=== PATIENT | female | born 1975 | race Caucasian/White ===

== ENCOUNTER 2019-03-07 10:25 | Emergency (ER) | payer SELFPAY ==
[2019-03-07 10:49] VITALS: BP 148/92; PULSE 98; RESP 18; TEMP 36.8; O2SAT 96; BMI 33.9
--- NOTE | 2019-03-07 11:06 | W.ED.BACK ---
HPI - Back Pain/Injury General: Chief Complaint: Back Pain/Injury Stated Complaint: back pain Time Seen by Provider: 03/07/19 11:00 History of Present Illness: MD elicited complaint: back pain and back injury Pertinent past history: prior back pain Onset (ago): day(s) Timing: constant and progressively worsening Severity: severe Similar Symptoms Previously: Yes Quality: burning, sharp, stabbing and throbbing Location: lumbar spine Radiation: none Exacerbating factors: movement, walking and lifting Relieving factors: none Associated symptoms: Reports no associated symptoms Work related injury: No Review of Systems General: Reports: 10 or more systems reviewed and unremarkable except in HPI and below PFSH ED PFSH: Statuses (acute, chronic, etc) shown below reflect problem list status as previously entered and may not be historically accurate Social History Smoking and tobacco status: current every day smoker Female Reproductive History: Date of last menstrual period: 02/14/19 Physical Exam Narrative: EXAM NARRATIVE: Patient is lying On her right side pulling a soft massager to her lumbar spine. Const: COMMON NORMALS: no apparent distress (Appears to be in mild to moderate pain) and oriented x3 GENERAL APPEARANCE: cooperative and disheveled ORIENTATION/CONSCIOUSNESS: Yes awake, Yes oriented to person, Yes oriented to place and Yes oriented to time HENMT: COMMON NORMALS: normocephalic, head/scalp atraumatic, hearing grossly normal bilaterally, external ears normal, EAC's normal, TM's normal bilaterally, external nose normal, nasal mucous membranes and turbinates normal, moist oral mucous membranes, oropharynx normal, dentition normal and gingiva normal HEAD & SCALP: normocephalic and atraumatic NOSE: external nose normal and nasal mucous membranes and turbinates normal EXTERNAL EAR: Yes external ears normal EXTERNAL AUDITORY CANAL: EAC's normal TYMPANIC MEMBRANE: TM's normal bilaterally Neck/C-Spine: COMMON NORMALS: full ROM, no lymphadenopathy, supple, no meningeal signs, no JVD, thyroid normal and no carotid bruits THYROID: thyroid normal Resp: COMMON NORMALS: normal respiratory effort, no retractions, no use of accessory muscles, clear to auscultation bilaterally and percussion normal AUSCULTATION: clear to auscultation bilaterally PERCUSSION: percussion normal Cardio: COMMON NORMALS: no JVD, regular rate, regular rhythm, S1 normal heart sound, S2 normal heart sound, no gallops, no clicks, no murmurs, no rub and peripheral pulses 2+ throughout RATE: regular rate RHYTHM: regular rhythm HEART SOUNDS: S1 normal and S2 normal PERIPHERAL PULSES: pulses 2+ throughout Back/Pelvis: GENERAL BACK: Yes tenderness THORACIC SPINE/UPPER BACK: Yes normal to inspection LUMBAR SPINE/LOWER BACK: Yes pain with ROM, Yes lumbar spinal tenderness, Yes paraspinal muscle spasm and Yes lumbar scoliosis present Extremity: COMMON NORMALS: normal to inspection, full ROM, normal capillary refill, no joint enlargement, no clubbing, cyanosis or edema, no calf tenderness and no pedal edema Neuro: COMMON NORMALS: oriented x3, CN's II-XII intact bilaterally, moves all extremities, no focal motor deficits, no sensory deficits noted, deep tendon reflexes 2+ bilaterally and gait normal SENSORIUM/ORIENTATION: Yes oriented to person, Yes oriented to place and Yes oriented to time MENINGEAL SIGNS: Yes no meningeal signs Skin: COMMON NORMALS: no rashes or lesions noted, no wounds, skin turgor normal, no jaundice, no petechiae and no mottling GENERAL SKIN EXAM: no rashes or lesions noted and turgor normal Course Vital Signs: Vital signs: Vital Signs Temperature 98.2 F 03/07/19 10:49 Pulse Rate 102 H 03/07/19 13:05 Respiratory Rate 18 03/07/19 10:49 Blood Pressure 150/83 03/07/19 13:05 Pulse Oximetry 96 03/07/19 13:05 MDM - Back Pain/Injury Imaging Data^: lumbar xray: My impression: pt's L-spine xray reveals severe scoliosis. no acute fx or other abnormality Radiologist's impression: CAROLE - Radiology Report Patient: Keya Seymour L Ordering Physician: Lm Chao P ID: [id number] Phone, Pager: Pager: N/A : 1975 Age/Gender: 44Y, F Primary Location: ER Procedure: XR lumbar spine 2-3V* 08333 Study Date: 03/07/2019 11:31:02 AM Order #: [id number] Report Status: Finalized Reason: lumbar spine injury [address] [address] XRay Report Signed Patient: Keya Seymour MR#: [id number] : 1975 Acct:[id number] Age/Sex: 44 / F ADM Date: 03/07/19 Loc: ER Attending Dr: Ordering Physician: Lm Chao DO Date of Service: 03/07/19 Procedure(s): XR lumbar spine 2-3V* [id number] Accession Number(s): [id number] cc: Lm Chao DO PROCEDURE INFORMATION: Exam: XR Lumbosacral Spine, 2 or 3 Views Exam date and time: 03/07/2019 11:36 AM Age: 44 years old Clinical indication: Low back pain; Additional info: Lumbar spine injury TECHNIQUE: Imaging protocol: XR of the lumbosacral spine, 2 or 3 views. COMPARISON: CR Lumbar Spine Flex/Extens [id number] 05/18/2013 9:37 AM FINDINGS: Vertebrae: Chronic thoracolumbar junction region levoscoliosis with segmentation anomalies. Lower lumbar spine has a normal appearance with normal alignment. No acute fracture evident. Soft tissues: Normal. XR/XR lumbar spine 2-3V* [id number] IMPRESSION: No acute findings. Dictated By: Haim Potter MD 03/07/19 1312 Signed By: Haim Potter MD 03/07/19 1313 Discharge Plan Discharge Patient Disposition: Home, Self-Care Clinical Impression: Strain of lumbar region, Lumbar radiculopathy Condition: Stable Prescriptions: New hydrocodone-acetaminophen 5-325 mg tablet 1 tab PO Q8H PRN (Reason: pain) Qty: 7 RF: 0 cyclobenzaprine 10 mg tablet 10 mg PO Q8H PRN (Reason: muscle spasm) Qty: 20 RF: 0 No Action lisinopril 20 mg tablet 1 RF: 0 paroxetine HCl 40 mg tablet 1 mg PO RF: 0 trazodone 100 mg tablet 1 QPM PRN (Reason: Sleep) RF: 0 clonazepam 0.5 mg tablet PRN (Reason: Anxiety) RF: 0 Tylenol 325 mg Capsule 325 mg PO QID PRN (Reason: Pain) RF: 0 naproxen sodium 220 mg Capsule 2 mg PRN (Reason: Pain) RF: 0 Discharge Orders: Discharge Order (Routine); Ordered 03/07/19 Ordered By: Lm Chao Referrals: Beny Townsend MD [Family Provider] - Activity Restrictions/Additional Instructions: Alternate ice packs and moist heat See your primary care physician on Saturday Coding Level of Care Code ED Mobile Application Tester for Chg Fwd Exam Problem Focused
--- NOTE | 2019-03-07 11:12 | XRR_ITS ---
PROCEDURE INFORMATION: Exam: XR Lumbosacral Spine, 2 or 3 Views Exam date and time: 03/07/2019 11:36 AM Age: 44 years old Clinical indication: Low back pain; Additional info: Lumbar spine injury TECHNIQUE: Imaging protocol: XR of the lumbosacral spine, 2 or 3 views. COMPARISON: CR Lumbar Spine Flex/Extens [id number] 05/18/2013 9:37 AM FINDINGS: Vertebrae: Chronic thoracolumbar junction region levoscoliosis with segmentation anomalies. Lower lumbar spine has a normal appearance with normal alignment. No acute fracture evident. Soft tissues: Normal. XR/XR lumbar spine 2-3V* [id number] IMPRESSION: No acute findings.
--- NOTE | 2019-03-07 11:31 | PC.NURSE ---
pt transported to radiology by wheelchair with tech
[2019-03-07] MEDS: ketorolac 30 mg/mL INJ IM (11:48)
[2019-03-07] MEDS: orphenadrine 30 mg/mL Inj 2 mL 60 MG IM (11:48)
[2019-03-07] MEDS: HYDROcodone-acetaminophen 5-325 mg Tablet 1 TAB PO (13:03)
[2019-03-07 13:05] VITALS: BP 150/83; PULSE 102; O2SAT 96
[2019-03-07 13:35] VITALS: BP 137/89; PULSE 94; RESP 20; O2SAT 97
== END 2019-03-07 13:35 | disposition home or self-care (01) ==
PROVIDERS: Emergency Provider Family Medicine; Family Provider Family Medicine
DX: S39.012A Strain of muscle, fascia and tendon of lower back, initial encounter (principal); M54.16 Radiculopathy, lumbar region; F17.210 Nicotine dependence, cigarettes, uncomplicated; X58.XXXA Exposure to other specified factors, initial encounter
CPT/HCPCS: 72100; 96372; 99281; J1885; J2360

== ENCOUNTER 2019-11-16 11:54 | Emergency (ER) | payer SELFPAY ==
--- NOTE | 2019-11-16 11:58 | ED_ITS ---
HPI - Back Pain/Injury General: Chief Complaint: Back Pain/Injury Stated Complaint: BACK PAIN Time Seen by Provider: 11/16/19 11:56 History of Present Illness: HPI Narrative: 44-year-old female presents emergency room via EMS with complaints of back pain. She cannot recall any particular taking event lifting or straining. She refers most of the pain of the low back. She has an ice pack and a vibrating stuffed animal against her low back for relief. She denies any urinary retention or fecal incontinence. No numbness or tingling into the extremities she states she has scoliosis. MD elicited complaint: back pain Pertinent past history: prior back pain Onset (ago): minute(s) Timing: constant Severity: mild Similar Symptoms Previously: Yes Quality: sharp Location: lumbar spine Radiation: none Exacerbating factors: none Relieving factors: none Associated symptoms: Reports no associated symptoms; Deny abdominal pain, chills, dysuria, fatigue, fever(s), nausea, urinary urgency or vomiting Treatments prior to arrival: cold therapy Review of Systems Const: Denies: fever(s), chills, body aches, change in appetite, fatigue or malaise ENMT: Denies: throat pain, ear or mastoid pain, nasal discharge or nasal congestion Card: Denies: chest pain, edema, dyspnea on exertion or orthopnea Resp: Denies: dyspnea, productive cough or non-productive cough GI: Denies: abdominal pain, nausea, vomiting, hematemesis, coffee ground emesis, diarrhea, constipation, bloating, hematochezia or melena : Denies: flank pain, difficulty voiding, dysuria, urinary frequency or urinary urgency Skin/Breast: Denies: rash or pruritus PFS ED PFSH: Medical History Scoliosis Social History Smoking and tobacco status: current every day smoker Female Reproductive History: Date of last menstrual period: 02/14/19 Physical Exam Const: COMMON NORMALS: no acute distress GENERAL APPEARANCE: cooperative and comfortable ORIENTATION/CONSCIOUSNESS: Yes awake, Yes oriented to person, Yes oriented to place and Yes oriented to time HENMT: COMMON NORMALS: normocephalic, atraumatic and hearing grossly normal bilaterally HEAD & SCALP: normocephalic and atraumatic Eye: COMMON NORMALS: Equal, round and reactive pupils present, EOMs intact bilaterally, conjunctivae normal and no scleral icterus CONJUNCTIVA: Yes conjunctivae normal PUPIL: Yes Equal, round and reactive pupils present Neck/C-Spine: COMMON NORMALS: full ROM, no lymphadenopathy, supple and no JVD Lymph: LYMPHATIC: no lymphadenopathy noted and no lymphedema noted Resp: COMMON NORMALS: normal respiratory effort, No retractions, No use of accessory muscles and clear to auscultation bilaterally AUSCULTATION: clear to auscultation bilaterally Cardio: COMMON NORMALS: no JVD, regular rate, regular rhythm and No murmurs present (Cardio) RATE: regular rate RHYTHM: regular rhythm GI: COMMON NORMALS: Soft to palpation and No hepatosplenomegaly present AUSCULTATION: Yes normoactive bowel sounds PALPATION: Yes Soft to palpation, No Tenderness to palpation present (GI), No Guarding due to palpation present (GI) and Yes No hepatosplenomegaly present Extremity: COMMON NORMALS: normal to inspection, capillary refill normal, no clubbing, cyanosis or edema, no calf tenderness and no pedal edema Neuro: SENSORIUM/ORIENTATION: Yes oriented to person, Yes oriented to place and Yes oriented to time Skin: COMMON NORMALS: no rashes or lesions noted GENERAL SKIN EXAM: no rashes or lesions noted Course Vital Signs: Vital signs: Vital Signs Temperature 97.6 F 11/16/19 12:04 Pulse Rate 101 H 11/16/19 15:11 Respiratory Rate 18 11/16/19 15:11 Blood Pressure 144/96 11/16/19 15:11 Pulse Oximetry 97 11/16/19 15:11 MDM - Back Pain/Injury MDM Narrative: Medical decision making narrative: No evidence of acute neural impingement on exam. Treat with medications as below. If persists may need to have follow-up with her primary caregiver for further advanced imaging if indicated. Discharge Plan Discharge Patient Disposition: Home Clinical Impression: Strain of lumbar region Condition: Stable Prescriptions: New hydrocodone-acetaminophen 5-325 mg tablet 1 tab PO Q6H PRN (Reason: pain) Qty: 15 RF: 0 Medrol (Rony) 4 mg tablets,dose pack See Rx Instructions .ROUTE .COMPLEX Qty: 21 RF: 0 tizanidine 4 mg capsule 4 mg PO Q6H PRN (Reason: muscle spasticity) Qty: 30 RF: 0 diclofenac sodium 75 mg tablet,delayed release (DR/EC) 75 mg PO Q12H PRN (Reason: pain) Qty: 20 RF: 0 Held tramadol 50 mg Tablet 50 mg PO DAILY PRN (Reason: Pain) RF: 0 Hold Instructions: Resume on 11/23/19. naproxen sodium 220 mg Capsule 220 mg PO Q8H PRN (Reason: Pain) RF: 0 Hold Instructions: Resume on 11/23/19. cyclobenzaprine 10 mg tablet 10 mg PO Q8H PRN (Reason: muscle spasm) Qty: 20 RF: 0 Hold Instructions: Resume on 11/23/19. No Action buspirone 10 mg Tablet 10 mg PO BID RF: 0 lisinopril 40 mg Tablet 40 mg PO DAILY RF: 0 paroxetine HCl 40 mg tablet 40 mg PO DAILY RF: 0 trazodone 100 mg tablet 100 mg PO BEDTIME PRN (Reason: Sleep) RF: 0 acetaminophen [Tylenol] 325 mg Capsule 325 mg PO QID PRN (Reason: Pain) RF: 0 Discharge Orders: Discharge Order (Routine); Ordered 11/16/19 Ordered By: Juan Pablo Tidwell Referrals: Beny Townsend MD [Primary Care Provider] - Activity Restrictions/Additional Instructions: Follow-up with Dr. Bang as soon as you can for long-term pain control for your chronic back pain. Discharge Date/Time: 11/16/19 15:13 Coding Level of Care Code ED Compressor Station Engineer Chief for Chg Fwd Exam Comprehensive
[2019-11-16 12:01] VITALS: BP 121/74; PULSE 96; RESP 14; O2SAT 99; BMI 34.9
[2019-11-16 12:04] VITALS: BP 121/74; PULSE 97; RESP 16; TEMP 36.4; O2SAT 98
[2019-11-16 12:38] VITALS: RESP 16; O2SAT 98
[2019-11-16] MEDS: ketorolac 30 mg/mL INJ IVP (12:38)
[2019-11-16] MEDS: morphine 4 mg/mL SDV 1 mL IVP (12:38)
[2019-11-16] MEDS: orphenadrine 30 mg/mL Inj 2 mL 60 MG IVP (12:38)
[2019-11-16 13:38] VITALS: RESP 16
[2019-11-16] MEDS: morphine 4 mg/mL SDV 1 mL 6 MG IVP (13:38)
[2019-11-16 15:11] VITALS: BP 144/96; PULSE 101; RESP 18; O2SAT 97
== END 2019-11-16 15:13 | disposition home or self-care (01) ==
PROVIDERS: Emergency Provider Family Medicine; PCP Family Medicine
DX: S39.012A Strain of muscle, fascia and tendon of lower back, initial encounter (principal); F17.210 Nicotine dependence, cigarettes, uncomplicated; X58.XXXA Exposure to other specified factors, initial encounter
CPT/HCPCS: 12345; 96374; 96375; 96376; 99282; 99283; J1885; J2270; J2360

== ENCOUNTER → 2021-02-28 16:39 | Outpatient (BNVA) | payer OTHER, SELFPAY | PROVIDERS: PCP Family Medicine; Visit Provider Nurse Practitioner Family | DX: Z20.822 Contact with and (suspected) exposure to COVID-19 (principal); Z72.0 Tobacco use; Z71.6 Tobacco abuse counseling | CPT/HCPCS: 87635 ==

== ENCOUNTER → 2022-08-06 13:50 | Outpatient (BNVA) | payer OTHER, SELFPAY | PROVIDERS: PCP Family Medicine; Visit Provider Nurse Practitioner Family | DX: R30.0 Dysuria (principal) | CPT/HCPCS: 81000 ==

== ENCOUNTER → 2022-08-15 13:56 | Outpatient (BNVA) | payer OTHER, SELFPAY | PROVIDERS: PCP Family Medicine; Visit Provider Family Medicine | DX: F31.31 Bipolar disorder, current episode depressed, mild (principal); E28.2 Polycystic ovarian syndrome | CPT/HCPCS: 80053; 80061; 81000; 83036; 84439; 84443; 85025; 87086 ==

== ENCOUNTER 2022-09-01 09:15 | Emergency (ER) | payer OTHER, SELFPAY ==
[2022-09-01 09:25] VITALS: BP 126/64; PULSE 104; RESP 16; TEMP 36.6; O2SAT 98; BMI 32.9
[2022-09-01 09:31] VITALS: BP 126/64; PULSE 92; O2SAT 98
--- NOTE | 2022-09-01 09:31 | ED_ITS ---
HPI - Back Pain/Injury General: Chief Complaint: Back Pain/Injury Stated Complaint: back pain Time Seen by Provider: 09/01/22 09:18 Source: patient Mode of arrival: ambulatory History of Present Illness: 47-year-old female presents emergency room complaining of low back pain. States she has a history of scoliosis has had problems with back pain in the past intermittently she tries to maintain her regular activity to keep back from having spasm and discomfort. She denies any dysuria urgency or frequency no fever sweats chills no recent trauma. No urinary retention or fecal incontinence no saddle paresthesias. No significant radicular symptoms at this time. MD elicited complaint: back pain Pertinent past history: prior back pain Onset (ago): day(s) Timing: constant Severity: mild Similar Symptoms Previously: Yes Quality: aching Location: lumbar spine Radiation: none Exacerbating factors: movement, sitting upright and walking Relieving factors: immobilization and supine Associated symptoms: Deny abdominal pain, arthralgias, chills, change in bowel habits, difficulty walking, dysuria, fatigue, fecal incontinence, fever(s), hematuria, myalgias, nausea, numbness, syncope, tingling/numbness/burning, urinary frequency, urinary urgency, vomiting or weakness Review of Systems Const: Denies: fever(s), chills, fatigue or malaise Card: Denies: chest pain or syncope Resp: Denies: dyspnea, productive cough or non-productive cough GI: Denies: abdominal pain, nausea, vomiting, fecal incontinence or change in bowel habits : Denies: difficulty voiding, dysuria, urinary frequency, urinary urgency or hematuria Skin/Breast: Denies: rash or pruritus Neuro: Denies: difficulty walking PFSH ED PFSH: Medical History Bipolar 1 disorder, depressed, mild Depression Hypertension PCOS (polycystic ovarian syndrome) Scoliosis Surgical History History of bilateral salpingectomy History of bilateral salpingo-oophorectomy History of cholecystectomy History of removal of ovarian cyst Family History Sister Cancer breast Mother Cancer lung Father Cancer eye Other CAD (coronary artery disease) Dementia Diabetes Hyperlipidemia Hypertension Lung disease Psychiatric illness Denies family history of Clotting disorder Chronic kidney disease (CKD) Anesthesia complication Bleeding disorder Stroke Social History Smoking and tobacco status: current every day smoker cigarettes Packs smoked per day: 1 Alcohol intake: never Substance/Drug Use: current Substance/Drug use frequency: daily Lives independently: Yes Marital status: Number of grandchildren: 2 Current occupational status: employed Current occupation: [employer] Special rhonda needs: No Agree to transfusion: Yes Physical Exam Const: GENERAL APPEARANCE: cooperative and comfortable ORIENTATION/CONSC IOUSNESS: Yes awake, Yes oriented to person, Yes oriented to place and Yes oriented to time HENMT: COMMON NORMALS: normocephalic, atraumatic and hearing grossly normal bilaterally HEAD & SCALP: normocephalic and atraumatic Resp: COMMON NORMALS: normal respiratory effort, No retractions, No use of accessory muscles and clear to auscultation bilaterally AUSCULTATION: clear to auscultation bilaterally Cardio: COMMON NORMALS: regular rate, regular rhythm and No murmurs present (Cardio) RATE: regular rate RHYTHM: regular rhythm Extremity: COMMON NORMALS: normal to inspection, capillary refill normal, no clubbing, cyanosis or edema, no calf tenderness and no pedal edema Neuro: SENSORIUM/ORIENTATION: Yes oriented to person, Yes oriented to place and Yes oriented to time OTHER: D10 reflexes +2/4 bilaterally sensation lower extremities normal neurovascularly intact Skin: COMMON NORMALS: no rashes or lesions noted GENERAL SKIN EXAM: no rashes or lesions noted Course Vital Signs: Vital signs: Vital Signs Temperature 97.9 F 09/01/22 09:25 Pulse Rate 92 09/01/22 09:31 Respiratory Rate 16 09/01/22 09:25 Blood Pressure 126/64 09/01/22 09:31 Pulse Oximetry 98 09/01/22 09:31 Oxygen Delivery Me thod Room Air 09/01/22 09:25 MDM - Back Pain/Injury Medical Decision Making Slightly improved with medications will discharge home with anti-inflammatories muscle relaxers Lyrica and prednisone taper. Recheck with primary care if not worsening or not improving Medical Records I reviewed the patient's medical records. Labs I reviewed the patient's lab results. Discharge Plan Discharge Patient Disposition: Home Clinical Impression: Strain of lumbar region Condition: Stable Prescriptions: New Lyrica 75 mg capsule 75 mg PO BID Qty: 60 0RF tizanidine 4 mg tablet 4 mg PO Q6H PRN (Reason: muscle spasticity) Qty: 20 0RF Rx Instructions: do not exceed 3 doses per 24 hrs prednisone 20 mg tablet 20 mg PO TID Qty: 15 0RF Rx Instructions: 1 p.o. 3 times daily x3 days, 1 p.o. twice daily x2 days, 1 p.o. daily x2 days diclofenac sodium 75 mg tablet,delayed release (DR/EC) 75 mg PO Q12H PRN (Reason: pain) Qty: 20 0RF Discontinued naproxen sodium 220 mg Capsule 220 mg PO Q8H PRN (Reason: Pain) Hold Instructions: Resume on 11/23/19. No Action spironolactone 25 mg tablet 25 mg PO DAILY Qty: 90 1RF aripiprazole [Abilify] 10 mg tablet 10 mg PO DAILY Qty: 21 0RF valacyclovir [Valtrex] 500 mg tablet 500 mg PO BID 3 Days Qty: 6 3RF Rx Instructions: take with onset of flare lisinopril 40 mg tablet 40 mg PO DAILY Qty: 90 3RF buspirone 10 mg tablet See Rx Instructions .ROUTE .COMPLEX Qty: 60 5RF Dose Instruction: Take 1 tablet by mouth twice daily Rx Instructions: Take 1 tablet by mouth twice daily acetaminophen [Tylenol] 325 mg Capsule 325 mg PO QID PRN (Reason: Pain) Discharge Orders: Discharge ED (Routine); Ordered 09/01/22 Ordered By: Juan Pablo Tidwell Referrals: Lucas Matias MD [Primary Care Provider] - Patient Instructions: Opioid Safety, Pain Management Activity Restrictions/Additional Instructions: Follow-up with your primary care doctor within the next week Coding Level of Care Code ED Nurse Wound for Alexandr Davenport
[2022-09-01] MEDS: dexamethasone 10 mg/mL INJ IVP (09:48)
[2022-09-01] MEDS: ketorolac 30 mg/mL INJ IVP (09:48)
[2022-09-01] MEDS: tizanidine 4 mg Tablet 8 MG PO (10:04)
== END 2022-09-01 10:55 | disposition home or self-care (01) ==
PROVIDERS: Emergency Provider Family Medicine; PCP Family Medicine
DX: S39.012A Strain of muscle, fascia and tendon of lower back, initial encounter (principal); X50.9XXA Other and unspecified overexertion or strenuous movements or postures, initial encounter; Y93.9 Activity, unspecified; Y92.9 Unspecified place or not applicable
CPT/HCPCS: 96374; 96375; 99284; J1100; J1885

== ENCOUNTER 2022-11-26 14:10 | Outpatient (CLI) | payer OTHER, SELFPAY ==
--- NOTE | 2022-11-26 14:17 | MM_ITS ---
WS: [id number] BILATERAL 3D TOMOSYNTHESIS DIGITAL SCREENING MAMMOGRAPHY WITH CAD CLINICAL INFORMATION: breast CA screening HISTORY: Screening mammogram. No current complaints. COMPARISON: 2017 TECHNIQUE: Bilateral CC and MLO views. FINDINGS: The breasts are composed of heterogeneous fibroglandular density tissue, which can limit the detectio n of small underlying mass lesions. Stable dense breast tissue upper outer LEFT breast. No suspicious mass, asymmetry, calcifications, or architectural distortion. No evidence of malignancy. Few tiny in cidental punctate calcifications. IMPRESSION: MM/[place] [id number] BI-RADS: 2-Benign FOLLOW UP: 1 Year Follow-up Recommend return to annual screening mammography.
== END 2022-11-26 14:11 | disposition home or self-care (01) ==
PROVIDERS: PCP Family Medicine
DX: Z12.31 Encounter for screening mammogram for malignant neoplasm of breast (principal)
CPT/HCPCS: 77063; 77067

== ENCOUNTER 2023-09-02 14:25 | Emergency (ER) | payer SELFPAY ==
[2023-09-02 14:54] VITALS: BP 142/91; PULSE 78; RESP 14; TEMP 36.7; O2SAT 100
[2023-09-02 16:18] LABS: Basophils % 0.3 %; Eosinophils # 0.1 10^3/uL (0.0-0.8); Eosinophils % 0.7 %; Hematocrit 38.3 % (36-47); Lymphocytes # 2.3 10^3/uL (0.8-4.8); Lymphocytes % 20.4 %; Mean Corpuscular HGB Conc 32.1 g/dL (30-55); Mean Corpuscular Volume 87.2 fl (85-98); Mean Platelet Volume 8.5 fL (7.4-10.4); Monocytes # 0.4 10^3/uL (0.2-0.9); Monocytes % 3.7 %; Neutrophils # 8.29 10^3/uL (1.8-7.7); Neutrophils % 74.5 %; Nucleated Red Blood Cells % 0 %; Platelet Count 470 10^3/cmm (157-399); Red Blood Count 4.39 10^6/uL (3.85-5.65); Red Cell Distribution Width 13.8 % (12.1-15.1); White Blood Count 11.12 10^3/uL (3.29-11.43)
[2023-09-02 16:37] LABS: Alanine Aminotransferase 12 U/L (0-33); Albumin Level 4.4 g/dL (3.5-5.2); Alkaline Phosphatase 64 U/L (35-105); Anion Gap 12.2 (5-19); Aspartate Amino Transferase 14 U/L (0-32); Blood Urea Nitrogen 9 mg/dL (6-20); Calcium 9.3 mg/dL (8.5-10.5); Carbon Dioxide 26 mmol/L (22-29); Chloride 103 mmol/L (98-107); Globulin 2.7 g/dL (1.3-4.6); Glomerular Filtration Rate 132.8 mL/min (90-130); Glucose 114 mg/dL (65-115); Lipase 20 U/L (13-60); Osmolality Calculated 284 mOsm/kg (285-295); Potassium 4.2 mmol/L (3.5-5.1); Sodium 137 mmol/L (136-145); Total Bilirubin 0.2 mg/dL (0.15-1.2); Total Protein 7.1 g/dL (6.6-8.7)
[2023-09-02 16:42] LABS: HCG, Serum Qual Negative (Negative)
--- NOTE | 2023-09-02 16:54 | XRR_ITS ---
PROCEDURE INFORMATION: Exam: XR Chest Exam date and time: 09/02/2023 5:27 PM Age: 48 years old Clinical indication: Dyspnea; Additional info: Dyspnea/cough TECHNIQUE: Imaging protocol: Radiologic exam of the chest. Views: 1 view. COMPARISON: CR XR chest 1V [id number] 06/28/2017 9:47 PM FINDINGS: Lungs: Unremarkable. No consolidation or mass. Pleural spaces: Unremarkable. No pleural effusion. No pneumothorax. Heart/Mediastinum: Unremarkable. No cardiomegaly. Bones/joints: Prominent scoliosis involves the thoracic spine. XR/XR chest 1V portable [id number] IMPRESSION: No acute findings.
--- NOTE | 2023-09-02 17:18 | ED_ITS ---
HPI - Syncope 2 General: Chief Complaint: Syncope Stated Complaint: passed, ABD pain, dizzy Time Seen by Provider: 09/02/23 16:54 Source: patient Mode of arrival: ambulatory History of Present Illness: 48-year-old female presents emergency ro om with complaint of passing out. She has a history of PCOS started getting severe abdominal cramps she laid down with her head on a desk while sitting in a chair bed woke up on the floor. No vomiting after the episode she is awake and alert now she states she has had similar episodes in the past once while taking a bowel movement. She has not had any chest pain or discomfort no palpitations. She continues to have a fair amount of abdominal cramping which states is typical for her menstrual cycle. Associated symptoms: Deny abdominal pain, chest pain, fever(s), headache(s), lightheadedness, nausea, short of breath, vertigo or weakness History: previous syncopal episode Treatments prior to arrival: none Review of Systems 2 Const: Denies: fever(s) Card: Denies: chest pain or lightheadedness Resp: Denies: dyspnea GI: Denies: abdominal pain or nausea : Denies: dysuria, urinary frequency or urinary urgency Musc: Denies: neck pain or back pain Skin/Breast: Denies: rash Neuro: Denies: headache(s) or vertigo PFSH ED 2 PFSH: Medical History Bipolar 1 disorder, depressed, mild Hypertension Depression PCOS (polycystic ovarian syndrome) Scoliosis Surgical History History of removal of ovarian cyst History of bilateral salpingectomy History of bilateral salpingo-oophorectomy History of cholecystectomy Family History Sister Cancer breast Mother Cancer lung Father Cancer eye Other CAD (coronary artery disease) Dementia Diabetes Hyperlipidemia Hypertension Lung disease Psychiatric illness Denies family history of Clotting disorder Chronic kidney disease (CKD) Anesthesia complication Bleeding disorder Stroke Social History Smoking and tobacco/nicotine status: current every day tobacco/nicotine user cigarettes Packs smoked per day: 1 Alcohol intake: never Substance/Drug Use: current Substance/Drug use frequency: daily Lives independently: Yes Marital status: Number of grandchildren: 2 Current occupational status: employed Current occupation: [employer] Special rhonda needs: No Agree to transfusion: Yes Female Reproductive History: Date of last menstrual period: 09/01/23 Physical Exam 2 Const: COMMON NORMALS: no acute distress GENERAL APPEARANCE: cooperative and comfortable ORIENTATION/CONSCIOUSNESS: Yes awake, Yes oriented to person, Yes oriented to place and Yes oriented to time HENMT: COMMON NORMALS: normocephalic, atraumatic and hearing grossly normal bilaterally HEAD & SCALP: normocephalic and atraumatic Resp: COMMON NORMALS: normal respiratory effort, No retractions, No use of accessory muscles and clear to auscultation bilaterally AUSCULTATION: clear to auscultation bilaterally Cardio: COMMON NORMALS: regular rate, regular rhythm and No murmurs present (Cardio) RATE: regular rate RHYTHM: regular rhythm GI: COMMON NORMALS: Soft to palpation and No hepatosplenomegaly present A USCULTATION: Yes normoactive bowel sounds PALPATION: Yes Soft to palpation, No Tenderness to palpation present (GI), No Guarding due to palpation present (GI) and Yes No hepatosplenomegaly present Extremity: COMMON NORMALS: normal to inspection, capillary refill normal, no clubbing, cyanosis or edema, no calf tenderness and no pedal edema Neuro: SENSORIUM/ORIENTATION: Yes oriented to person, Yes oriented to place and Yes oriented to time Skin: COMMON NORMALS: no rashes or lesions noted GENERAL SKIN EXAM: no rashes or lesions noted Course 2 Vital Signs: Vital signs: Vital Signs Temperature 98.1 F 09/02/23 14:54 Pulse Rate 75 09/02/23 18:00 Respiratory Rate 16 09/02/23 18:00 Blood Pressure 151/104 09/02/23 18:00 Pulse Oximetry 98 09/02/23 18:00 Oxygen Delivery Me thod Room Air 09/02/23 18:00 MDM - Syncope Medical Decision Making Patient feeling better after fluids. Discussed with her she is comfortable going home we will discharge her home encouraged her to follow-up with her primary care doctor she is on spironolactone she might benefit from metformin for PCOS. She is denying any chest pain or other palpitations at this time. Follow-up with primary care doctor return if is further problems Medical Records I reviewed the patient's medical records. Lab Data I reviewed the patient's lab results. 09/02/23 16:11 09/02/23 16:11 Radiology Impressions Chest X-Ray 09/02/23 16:54 IMPRESSION: No acute findings. Laboratory Results WBC 11.12 10^3/uL (3.29-11.43) 09/02/23 16:11 RBC 4.39 10^6/uL (3.85-5.65) 09/02/23 16:11 Hgb 12.30 g/dL (11.27-16.99) 09/02/23 16:11 Hct 38.3 % (36-47) 09/02/23 16:11 MCV 87.2 fl (85-98) 09/02/23 16:11 MCH 28.0 pg (27-33) 09/02/23 16:11 MCHC 32.1 g/dL (30-55) 09/02/23 16:11 RDW 13.8 % (12.1-15.1) 09/02/23 16:11 Plt Count 470 10^3/cmm (157-399) H 09/02/23 16:11 MPV 8.5 fL (7.4-10.4) 09/02/23 16:11 Neut % (Auto) 74.5 % 09/02/23 16:11 Lymph % (Auto) 20.4 % 09/02/23 16:11 [place] % (Auto) 3.7 % 09/02/23 16:11 Eos % (Auto) 0.7 % 09/02/23 16:11 Baso % (Auto) 0.3 % 09/02/23 16:11 Neut # (Auto) 8.29 10^3/uL (1.8-7.7) H 09/02/23 16:11 Lymph # (Auto) 2.3 10^3/uL (0.8-4.8) 09/02/23 16:11 [place] # (Auto) 0.4 10^3/uL (0.2-0.9) 09/02/23 16:11 Eos # (Auto) 0.1 10^3/uL (0.0-0.8) 09/02/23 16:11 Baso # (Auto) 0.0 10^3/uL (0.0-0.1) 09/02/23 16:11 Nucleated RBC % (auto) 0 % 09/02/23 16:11 Nucleated RBCs # 0.0 /100WBC 09/02/23 16:11 Sodium 137 mmol/L (136-145) 09/02/23 16:11 Potassium 4.2 mmol/L (3.5-5.1) 09/02/23 16:11 Chloride 103 mmol/L (98-107) 09/02/23 16:11 Carbon Dioxide 26 mmol/L (22-29) 09/02/23 16:11 Anion Gap 12.2 (5-19) 09/02/23 16:11 BUN 9 mg/dL (6-20) 09/02/23 16:11 Creatinine 0.5 mg/dL (0.5-0.9) 09/02/23 16:11 GFR Calculation 132.8 mL/min (90-130) H 09/02/23 16:11 Glucose 114 mg/dL (65-115) 09/02/23 16:11 Calculated Osmolality 284 mOsm/kg (285-295) L 09/02/23 16:11 Calcium 9.3 mg/dL (8.5-10.5) 09/02/23 16:11 Total Bilirubin 0.2 mg/dL (0.15-1.2) 09/02/23 16:11 AST 14 U/L (0-32) 09/02/23 16:11 ALT 12 U/L (0-33) 09/02/23 16:11 Alkaline Phosphatase 64 U/L (35-105) 09/02/23 16:11 Total Protein 7.1 g/dL (6.6-8.7) 09/02/23 16:11 Albumin 4.4 g/dL (3.5-5.2) 09/02/23 16:11 Globulin 2.7 g/dL (1.3-4.6) 09/02/23 16:11 Lipase 20 U/L (13-60) 09/02/23 16:11 HCG, Qual Negative (Negative) 09/02/23 16:11 Urine Color Dark yellow (Yellow) A 09/02/23 16:52 Urine Appearance Slightly cloudy (CLEAR) 09/02/23 16:52 Urine pH 5 (5-7) 09/02/23 16:52 Ur Specific [place] 1.015 (1.005-1.030) 09/02/23 16:52 Urine Protein 2+ (Negative) H 09/02/23 16:52 Urine Glucose (UA) Norm (Normal) 09/02/23 16:52 Urine Ketones Negative (Negative) 09/02/23 16:52 Urine Blood 3+ (Negative) H 09/02/23 16:52 Urine Nitrate Negative (Negative) 09/02/23 16:52 Urine Bilirubin Neg (Negative) 09/02/23 16:52 Urine Urobilinogen Norm mg/dL (Negative) 09/02/23 16:52 Ur Leukocyte Esterase Trace (Negative) H 09/02/23 16:52 Urine RBC Too numerous to cnt /hpf (0-2) H 09/02/23 16:52 Urine WBC 5-10 /hpf (0-5) H 09/02/23 16:52 Ur Squamous Epith Cells 0-4 /hpf (0-5) H 09/02/23 16:52 Amorphous Sediment Not Reportable 09/02/23 16:52 Urine Bacteria Trace /hpf (NONE) 09/02/23 16:52 Urine Mucus 1+ /hpf 09/02/23 16:52 All radiology interpretation(s) finalized by discharge Discharge Plan Discharge Patient Disposition: Home Clinical Impression: Vasovagal syncope Condition: Stable Prescriptions: New tramadol 50 mg tablet 50 mg PO Q8H PRN (Reason: pain) Qty: 14 0RF No Action spironolactone 25 mg tablet 25 mg PO DAILY Qty: 90 1RF valacyclovir [Valtrex] 500 mg tablet 500 mg PO BID 3 Days Qty: 6 3RF Rx Instructions: take with onset of flare naproxen 500 mg tablet 500 mg PO BID Qty: 60 0RF tizanidine 4 mg tablet 4 mg PO Q6H PRN (Reason: muscle spasticity) Qty: 60 0RF Rx Instructions: do not exceed 3 doses per 24 hrs prednisone 20 mg tablet 40 mg PO DAILY 4 Days Qty: 8 0RF lisinopril 40 mg tablet 40 mg PO DAILY Qty: 90 3RF acetaminophen [Tylenol] 325 mg Capsule 325 mg PO QID PRN (Reason: Pain) Discharge Orders: Discharge ED (Routine); Ordered 09/02/23 Ordered By: Juan Pablo Tidwell Referrals: Lucas Matias MD [Primary Care Provider] - Discharge Diet: Usual diet Discharge Activity: Resume usual activity Patient Instructions: Opioid Safety, Pain Management Activity Restrictions/Additional Instructions: Thank you for choosing [facility] for your healthcare needs today. It is very important that you follow up as instructed or that you return to the Emergency Department should you have concerns or if your condition changes or worsens in any way. Coding Level of Care Code ED Transitional Living Specialist for Alexandr Davenport
[2023-09-02] MEDS: sodium chloride 0.9% 1,000 ML 999 ML IV (17:26)
[2023-09-02 17:33] LABS: Add Urine Microscopic? YES; Bilirubin Urine Neg (Negative); Blood Urine 3+ (Negative); Glucose Urine UA Norm (Normal); Ketones Urine Negative (Negative); Leukocyte Esterase Urine Trace (Negative); Nitrate Urine Negative (Negative); Protein Urine 2+ (Negative); Specific Gravity, Urine 1.015 (1.005-1.030); Urine Appearance Slightly Cloudy (CLEAR); Urine Color Dark Yellow (Yellow); Urobilinogen Urine Norm (Negative); pH Urine 5 (5-7)
[2023-09-02 17:34] LABS: Add Urine Culture? Yes; Bacteria Urine TRACE /hpf; Mucus Urine 1+ /hpf; RBC Urine TOO NUMEROUS TO CNT /hpf (0-2); Squamous Epithelial Cell Urine 0-4 /hpf (0-5)
[2023-09-02 17:38] VITALS: BP 139/96; PULSE 80; RESP 16; O2SAT 100
[2023-09-02 18:00] VITALS: BP 151/104; PULSE 75; RESP 16; O2SAT 98
== END 2023-09-02 19:08 | disposition home or self-care (01) ==
PROVIDERS: Physician Assistant; Emergency Provider Family Medicine; PCP Family Medicine
DX: R55 Syncope and collapse (principal); F17.210 Nicotine dependence, cigarettes, uncomplicated; I10 Essential (primary) hypertension
CPT/HCPCS: 36415; 71045; 80053; 81001; 83690; 84703; 85025; 87086; 96360; 99284; J7030

== ENCOUNTER 2024-12-14 09:56 | Emergency (ER) | payer SELFPAY ==
--- NOTE | 2024-12-14 10:00 | CT_ITS ---
WS: [id number] CT HEAD NONCONTRAST HISTORY: Symptoms of acute stroke TECHNIQUE: Contiguous axial imaging performed through the brain. Bone and soft tissue windows. Sagittal and coronal reformats reviewed. All CT scans at [facility] use at least one of these dose optimization techniques: automated exposure control; mA and/or kV adjustment per patient size (includes targeted exams where dose is matched to clinical indication); or iterative reconstruction. DLP: 1069.88 mGy COMPARISON: 06/28/2017 No acute intracranial hemorrhage, midline shift or mass effect. No atrophy or prior infarcts or herniation. Ventricles: Normal size with no hydrocephalus. Paranasal sinuses: As visualized are clear. Mastoid air cells: Well pneumatized. Calvarium and scalp: Skull is intact with no soft tissue edema or swelling. CT/CT head thrombolytic 63036 IMPRESSION: Negative head CT.
[2024-12-14 10:02] VITALS: BP 202/114; PULSE 87; RESP 17; TEMP 36.8; O2SAT 98; BMI 35.9
--- NOTE | 2024-12-14 10:02 | W.ED.NEUROSD ---
HPI - Neuro Symptoms/Deficit General: Chief Complaint: Headache Stated Complaint: stroke like systomps Time Seen by Provider: 12/14/24 10:01 History of Present Illness: 49-year-old female presents emergency room stating she woke up with this what she felt like a headache around 430 this morning she thought she had a very brief episode of right sided facial drooping but no other symptoms. She is not having any symptoms at this time. She has no other focal neurologic deficits. Her initial NIH is 0. Blood pressure is markedly elevated she still does have a bit of headache. Associated symptoms: Reports headache(s); Deny chest pain Related Data Home Medications ?Medication ?Instructions ?Recorded ?Confirmed acetaminophen 500 mg tablet 500 mg PO Q6H PRN Pain 12/14/24 12/14/24 ibuprofen 200 mg tablet 600 mg PO Q6H PRN Pain 12/14/24 12/14/24 Previous Rx's ?Medication ?Instructions ?Recorded amlodipine 5 mg tablet 5 mg PO DAILY #30 tabs 12/14/24 aspirin 81 mg tablet,delayed 81 mg PO DAILY #30 tabs 12/14/24 release metoprolol succinate 25 mg 12.5 mg (1/2 x 25 mg) PO DAILY #15 12/14/24 tablet,extended release 24 hr tabs Allergies Allergy/AdvReac Type Severity Reaction Status Date / Time No Known Allergies Allergy Verified 09/02/23 15:01 Review of Systems Const: Denies: fever(s) or chills Card: Denies: chest pain Resp: Denies: dyspnea GI: Denies: abdominal pain : Denies: dysuria, urinary frequency or urinary urgency Musc: Denies: neck pain or back pain Skin/Breast: Denies: rash Neuro: Reports: headache(s) [facility] ED PFSH: Medical History Bipolar 1 disorder, depressed, mild Hypertension Depression PCOS (polycystic ovarian syndrome) Scoliosis Surgical History History of removal of ovarian cyst History of bilateral salpingectomy History of bilateral salpingo-oophorectomy History of cholecystectomy Family History Sister Cancer breast Mother Cancer lung Father Cancer eye Other CAD (coronary artery disease) Dementia Diabetes Hyperlipidemia Hypertension Lung disease Psychiatric illness Denies family history of Clotting disorder Chronic kidney disease (CKD) Anesthesia complication Bleeding disorder Stroke Social History Smoking and tobacco/nicotine status: current every day tobacco/nicotine user cigarettes Packs smoked per day: 1 Alcohol intake: never Substance/Drug Use: current Substance/Drug use frequency: daily Lives independently: Yes Marital status: Number of grandchildren: 2 Current occupational status: employed Current occupation: [employer] Special rhonda needs: No Agree to transfusion: Yes NIH stroke score NIHSS: Level Of Consciousness - 1a: 0 Level Of Consciousness Questions - 1b: Both Correct Level Of Consciousness Commands - 1c: Both Correct Best Gaze - 2: Normal Visual Kramer - 3: No Visual Loss Facial Palsy - 4: Normal Motor Arm Right - 5: No Drift Motor Arm Left - 5: No Drift Motor Leg Right - 6: No Drift Motor Leg Left - 6: No Drift Limb Ataxia - 7: Absent Sensory - 8: Normal Best Language - 9: No Aphasia Dysarthia - 10: Normal Extinction And Inattention - 11: 0 Score: Total Score: 0 Physical Exam Const: GENERAL APPEARANCE: cooperative ORIENTATION/CONSCIOUSNESS: Yes awake, Yes oriented to person, Yes oriented to place and Yes oriented to time HENMT: COMMON NORMALS: normocephalic, atraumatic and hearing grossly normal bilaterally HEAD & SCALP: normocephalic and atraumatic Resp: COMMON NORMALS: normal respiratory effort, No retractions, No use of accessory muscles and clear to auscultation bilaterally AUSCULTATION: clear to auscultation bilaterally Cardio: COMMON NORMALS: regular rate, regular rhythm and No murmurs present (Cardio) RATE: regular rate RHYTHM: regular rhythm GI: COMMON NORMALS: Soft to palpation and No hepatosplenomegaly present AUSCULTATION: Yes normoactive bowel sounds PALPATION: Yes Soft to palpation, No Tenderness to palpation present (GI), No Guarding due to palpation present (GI) and Yes No hepatosplenomegaly present Extremity: COMMON NORMALS: normal to inspection, capillary refill normal, no clubbing, cyanosis or edema, no calf tenderness and no pedal edema Neuro: SENSORIUM/ORIENTATION: Yes oriented to person, Yes oriented to place and Yes oriented to time Skin: COMMON NORMALS: no rashes or lesions noted GENERAL SKIN EXAM: no rashes or lesions noted Course Vital Signs: Vital signs: Vital Signs Temperature 98.3 F 12/14/24 10:02 Pulse Rate 82 12/14/24 11:51 Respiratory Rate 16 12/14/24 11:51 Blood Pressure 146/99 12/14/24 11:51 Pulse Oximetry 99 12/14/24 11:51 Oxygen Delivery Me thod Room Air 12/14/24 11:51 MDM - Neuro Symptoms/Deficit Medical Decision Making No finding of CVA. Discussed with the patient we will start her on blood pressure medications she is feeling quite a bit better now that her blood pressure is lowered she has no further symptoms repeat neurologic exam unremarkable started on amlodipine 5 mg daily metoprolol 12.5 daily baby aspirin daily and follow-up with her primary care doctor within the next 7 to 10 days. Return if she has further symptoms. Lab Data 12/14/24 10:30 12/14/24 10:[address] 12/14/24 10:00 IMPRESSION: Negative head CT. Laboratory Results WBC 6.53 10^3/uL (3.29-11.43) 12/14/24 10:30 RBC 4.04 10^6/uL (3.85-5.65) 12/14/24 10:30 Hgb 11.30 g/dL (11.27-16.99) 12/14/24 10:30 Hct 34.9 % (36-47) L 12/14/24 10:30 MCV 86.4 fl (85-98) 12/14/24 10:30 MCH 28.0 pg (27-33) 12/14/24 10:30 MCHC 32.4 g/dL (30-55) 12/14/24 10:30 RDW 13.7 % (12.1-15.1) 12/14/24 10:30 Plt Count 372 10^3/cmm (157-399) 12/14/24 10:30 MPV 8.6 fL (7.4-10.4) 12/14/24 10:30 Neut % (Auto) 46.6 % 12/14/24 10:30 Lymph % (Auto) 43.0 % 12/14/24 10:30 [place] % (Auto) 7.8 % 12/14/24 10:30 Eos % (Auto) 1.8 % 12/14/24 10:30 Baso % (Auto) 0.5 % 12/14/24 10:30 Neut # (Auto) 3.04 10^3/uL (1.8-7.7) 12/14/24 10:30 Lymph # (Auto) 2.8 10^3/uL (0.8-4.8) 12/14/24 10:30 [place] # (Auto) 0.5 10^3/uL (0.2-0.9) 12/14/24 10:30 Eos # (Auto) 0.1 10^3/uL (0.0-0.8) 12/14/24 10:30 Baso # (Auto) 0.0 10^3/uL (0.0-0.1) 12/14/24 10:30 Nucleated RBC % (auto) 0 % 12/14/24 10:30 Nucleated RBCs # 0.0 /100WBC 12/14/24 10:30 PT 12.80 SECONDS (12.1-14.9) 12/14/24 10:30 INR 0.90 (0.8-1.2) 12/14/24 10:30 APTT 29.2 SECONDS (23.9-36.7) 12/14/24 10:30 Sodium 139 mmol/L (136-145) 12/14/24 10:30 Potassium 3.6 mmol/L (3.5-5.1) 12/14/24 10:30 Chloride 103 mmol/L (98-107) 12/14/24 10:30 Carbon Dioxide 23 mmol/L (22-29) 12/14/24 10:30 Anion Gap 16.6 (5-19) 12/14/24 10:30 BUN 9 mg/dL (6-20) 12/14/24 10:30 Creatinine 0.4 mg/dL (0.5-0.9) L 12/14/24 10:30 GFR Calculation 171.1 mL/min (90-130) H 12/14/24 10:30 Glucose 102 mg/dL (65-115) 12/14/24 10:30 POC Glucose 117 mg/dL (70-110) H 12/14/24 10:03 Calculated Osmolality 287 mOsm/kg (285-295) 12/14/24 10: Calcium 8.9 mg/dL (8.5-10.5) 12/14/24 10: Total Bilirubin 0.3 mg/dL (0.15-1.2) 12/14/24 10: AST 16 U/L (0-32) 12/14/24 10:30 ALT 13 U/L (0-33) 12/14/24 10: Alkaline Phosphatase 61 U/L (35-105) 12/14/24 10:30 Total Protein 6.2 g/dL (6.6-8.7) L 12/14/24 10: Albumin 4.1 g/dL (3.5-5.2) 12/14/24 10: Globulin 2.1 g/dL (1.3-4.6) 12/14/24 10:30 Urine Color Yellow (Yellow) 12/14/24 11:06 Urine Appearance Clear (CLEAR) 12/14/24 11:06 Urine pH 7.0 (5-7) 12/14/24 11:06 Ur Specific [place] 1.005 (1.005-1.030) 12/14/24 11:06 Urine Protein 1+ (Negative) A 12/14/24 11:06 Urine Glucose (UA) Negative (Normal) 12/14/24 11:06 Urine Ketones Negative (Negative) 12/14/24 11:06 Urine Blood Negative (Negative) 12/14/24 11:06 Urine Nitrate Negative (Negative) 12/14/24 11:06 Urine Bilirubin Negative (Negative) 12/14/24 11:06 Urine Urobilinogen 0.2 mg/dL (Negative) 12/14/24 11:06 Ur Leukocyte Esterase Trace (Negative) A 12/14/24 11:06 Urine RBC 0-4 /hpf (0-2) H 12/14/24 11:06 Urine WBC 5-10 /hpf (0-5) H 12/14/24 11:06 Ur Squamous Epith Cells 5-10 /hpf (0-5) H 12/14/24 11:06 Amorphous Sediment Not Reportable 12/14/24 11:06 Urine Bacteria Trace /hpf (NONE) 12/14/24 11:06 Urine Mucus Trace /hpf 12/14/24 11:06 Urine Opiates Screen Negative ng/mL (Negative) 12/14/24 11:06 Ur Barbiturates Screen Negative ng/mL (Negative) 12/14/24 11:06 Ur Phencyclidine Scrn Negative ng/mL (Negative) 12/14/24 11:06 Ur Amphetamines Screen Negative ng/mL (Negative) 12/14/24 11:06 U Benzodiazepines Scrn Negative ng/mL (Negative) 12/14/24 11:06 Urine Cocaine Screen Negative ng/mL (Negative) 12/14/24 11:06 U Marijuana (THC) Screen Negative ng/mL (Negative) 12/14/24 11:06 All radiology interpretation(s) finalized by discharge EKG Data EKG 1: I personally reviewed and interpreted this EKG as follows: EKG interpretation date: 12/14/24 Prior EKG tracings: available for review Interpretation: EKG 12/14/2024 10:24 AM sinus rhythm no acute ST changes noted rate of 83 FL interval 176 QTc 431 no previous EKGs for comparison Discharge Plan Discharge Patient Disposition: Home Clinical Impression: Hypertensive urgency Condition: Stable Prescriptions: New amlodipine 5 mg tablet 5 mg PO DAILY Qty: 30 0RF metoprolol succinate 25 mg tablet extended release 24 hr 12.5 mg PO DAILY Qty: 15 0RF aspirin 81 mg tablet,delayed release (DR/EC) 81 mg PO DAILY Qty: 30 0RF No Action acetaminophen 500 mg Tablet 500 mg PO Q6H PRN (Reason: Pain) ibuprofen 200 mg Tablet 600 mg PO Q6H PRN (Reason: Pain) Discharge Orders: Discharge ED (Routine); Ordered 12/14/24 Ordered By: Juan Pablo Tidwell Referrals: Lucas Matias MD [Primary Care Provider, Family Practice] Discharge Diet: Usual diet Discharge Activity: Increase activity as tolerated Patient Instructions: Opioid Safety, Pain Management, Patient Portal & Rg Instructions Activity Restrictions/Additional Instructions: Thank you for choosing [facility] for your healthcare needs today. It is very important that you follow up as instructed or that you return to the Emergency Department should you have concerns or if your condition changes or worsens in any way. Emergency department visits are focused on emergent conditions, in some cases you may require further evaluation on an outpatient basis. You are seen in the emergency room with headache. Your exam and CT of your head were negative for signs of stroke at this time symptoms improved with adequate blood pressure control. Recommend that you start amlodipine 5 mg daily metoprolol 12.5 mg daily follow-up with your doctor within the next week. Also recommended to take aspirin daily. (Please note that included in your discharge packet is information concerning opioid safety and pain management. This information is given to all patients were discharged from the ER regardless of their discharge diagnosis or the medicines they usually take or are prescribed.) Print Language: Djiboutian Coding Level of Care Code ED Die Cutter Diamond for Alexandr Davenport
--- NOTE | 2024-12-14 10:24 | ECG_ITS ---
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 Measurements Intervals [place] Rate: 83 P: 33 DC: 176 QRS: 15 QRSD: 92 T: 26 QT: 366 QTc: 431 Interpretive Statements SINUS RHYTHM No previous ECG available for comparison Electronically Signed On 12-16-2024 21:39:49 CDT by Josh Phillips M.D. [email or web address]
--- OUTSIDE RECORDS SUMMARY | 2024-12-14 10:27 | XMS_ITS | Clinical Summary ---
Author Organization [employer] Address [address] Attn: [place] [id number] Care Team Providers Care Insurance Verification Clerk Name Role Phone Beny Townsend MD Primary Care Provider Allergies Active Allergy Reactions Criticality Noted Date Comments Sulfamethoxazole-Trimethoprim Nausea and Vomiting High 04/12/2015 Medications HYDROcodone-acet aminophen (NORCO) 5-325 mg tablet Take 2 Tablet by mouth every 4 hours as needed for Pain, Moderate. 04/12/2015 Active cyclobenzaprine (FLEXERIL) 10 mg tablet Take 10 mg by mouth 3 times daily as needed for Spasm. 04/12/2015 Active loratadine (CLARITIN) 10 mg tablet Take 10 mg by mouth daily. 04/12/2015 Active HYDROcodone-acet aminophen (NORCO) 5-325 mg tablet Take 1 Tablet by mouth every 6 hours as needed for Pain. Max Daily Amount: 4 Tablet 12 Tablet None 04/12/2015 Active lisinopriL (PRINIVIL) 30 mg tablet Take 30 mg by mouth daily. 04/12/2015 Active Social History Tobacco Use Types Packs/Day Years Used Date Smoking Tobacco: Every Day Cigarettes Smokeless Tobacco: Never Comments Unknown Sex and Gender Information Value Date Recorded Sex Assigned at Not on file Legal Sex Female 2:41 AM CRANE OPERATOR Gender Identity Not on file Sexual Orientation Not on file Last Filed Vital Signs Vital Sign Reading Time Taken Comments Blood Pressure 144/66 04/13/2015 12:00 AM CRANE OPERATOR Pulse - - Temperature 36.8 C (98.2 F) 04/13/2015 12:00 AM CRANE OPERATOR Respiratory Rate 18 04/13/2015 12:00 AM CRANE OPERATOR Oxygen Saturation - - Inhaled Oxygen Concentration - - Weight 95.3 kg (210 lb 1.6 oz) 04/12/2015 8:50 P M CRANE OPERATOR Height 165.1 cm (5' 5 ) 04/12/2015 8:50 PM CRANE OPERATOR Body Mass Index 34.96 04/12/2015 8:50 PM CRANE OPERATOR Plan of Treatment Health Maintenance Due Date Last Done Comments DTAP/TDAP/TD VACCINES (1 - Tdap) 01/25/1996 HEPATITIS B VACCINES (1 of 3 - 19+ 3-dose series) 01/03 HPV/Cotest (21-29) 1998 CERVICAL CANCER SCREENING 2007 HPV/Cotest (30-65) 2007 PAP SMEAR 2007 BREAST CANCER SCREENING 2017 COLORECTAL SCREENING 2022 Colorectal Cancer Screening 2022 FIT-DNA Q 3 years 2022 FIT/FOBT Q 1 year 2022 Flex Sig/CT Colonography Q 5 years 2022 INFLUENZA VACCINE (#1) 2024 Care Teams Insurance Verification Clerk Relationship Specialty Start Date End Date Beny Townsend MD [address] [place] [id number] PCP - General Family Practice 11/29/14
--- OUTSIDE RECORDS SUMMARY | 2024-12-14 10:27 | XMS_ITS | Clinical Summary ---
Author Organization [facility] Address [address] [address] Phone Care Team Providers Care Manager Hydraulic Name Role Phone Beny Townsend MD Primary Care Provider Allergies Active Allergy Reactions Criticality Noted Date Comments Sulfamethoxazole-Trimethoprim Nausea and Vomiting High 04/12/2015 Medications HYDROcodone-acet aminophen (NORCO) 5-325 mg tablet Take 2 Tablet by mouth every 4 hours as needed for Pain, Moderate. Active cyclobenzaprine (FLEXERIL) 10 mg tablet Take 10 mg by mouth 3 times daily as needed for Spasm. Active lisinopril (PRINIVIL) 30 mg tablet Take 30 mg by mouth daily. Active loratadine (CLARITIN) 10 mg tablet Take 10 mg by mouth daily. Active HYDROcodone-acet aminophen (NORCO) 5-325 mg tablet Take 1 Tablet by mouth every 6 hours as needed for Pain. Max Daily Amount: 4 Tablet 12 Tablet None 04/12/2015 Active Social History Tobacco Use Types Packs/Day Years Used Date Smoking Tobacco: Every Day Cigarettes 1 17 Smokeless Tobacco: Never Comments No Sex and Gender Information Value Date Recorded Sex Assigned at Not on file Legal Sex Female 9:01 PM CDT Gender Identity Not on file Sexual Orientation Not on file Last Filed Vital Signs Vital Sign Reading Time Taken Comments Blood Pressure 144/66 04/13/2015 12:00 AM [employer] Pulse - - Temperature 36.8 C (98.2 F) 04/13/2015 12:00 AM [employer] Respiratory Rate 18 04/13/2015 12:00 AM [employer] Oxygen Saturation 96% 04/13/2015 12:00 AM [employer] Inhaled Oxygen Concentration - - Weight 95.3 kg (210 lb 1.6 oz) 04/12/2015 8:50 P M [employer] Height 165.1 cm (5' 5 ) 04/12/2015 8:50 PM [employer] Body Mass Index 34.96 04/12/2015 8:50 PM [employer] Plan of Treatment Health Maintenance Due Date [...] 5 years 2022 INFLUENZA VACCINE (#1) 2024 Insurance MEDICAID [place] Care Teams Manager Hydraulic Relationship Specialty Start Date End Date Beny Townsend MD [address] [place] [address] PCP - General Family Practice 11/29/14
[2024-12-14 10:38] LABS: Hematocrit 34.9 % (36-47); Hemoglobin 11.30 g/dL (11.27-16.99); Mean Corpuscular HGB Conc 32.4 g/dL (30-55); Mean Corpuscular Hemoglobin 28.0 pg (27-33); Mean Corpuscular Volume 86.4 fl (85-98); Nucleated Red Blood Cells % 0 %; Platelet Count 372 10^3/cmm (157-399); Red Blood Count 4.04 10^6/uL (3.85-5.65); White Blood Count 6.53 10^3/uL (3.29-11.43)
[2024-12-14 10:41] VITALS: BP 161/104; PULSE 79; RESP 16; O2SAT 96
[2024-12-14 10:51] LABS: INR 0.90 (0.8-1.2); Prothrombin Time 12.80 SECONDS (12.1-14.9)
[2024-12-14 10:52] LABS: Partial Thromboplastin Time 29.2 SECONDS (23.9-36.7)
[2024-12-14 10:58] LABS: Alanine Aminotransferase 13 U/L (0-33); Albumin Level 4.1 g/dL (3.5-5.2); Alkaline Phosphatase 61 U/L (35-105); Anion Gap 16.6 (5-19); Aspartate Amino Transferase 16 U/L (0-32); Blood Urea Nitrogen 9 mg/dL (6-20); Calcium 8.9 mg/dL (8.5-10.5); Carbon Dioxide 23 mmol/L (22-29); Chloride 103 mmol/L (98-107); Creatinine Clr Calc Pharmacy 194.1677; Globulin 2.1 g/dL (1.3-4.6); Glucose 102 mg/dL (65-115); Osmolality Calculated 287 mOsm/kg (285-295); Potassium 3.6 mmol/L (3.5-5.1); Sodium 139 mmol/L (136-145); Total Protein 6.2 g/dL (6.6-8.7)
[2024-12-14] MEDS: labetalol 5 mg/mL SDV 20mL 10 MG IVP (11:22)
[2024-12-14] MEDS: hyDRALAzine 20 mg/mL INJ 1 mL 10 MG IVP (11:22)
--- NOTE | 2024-12-14 11:26 | PC.PHAR ---
Pt had several medications on her chart that were more than 2 years old. Pt states she takes only otc Ibuprofen and Naproxen for pain.
[2024-12-14 11:32] LABS: Glucose Urine UA Negative (Normal); Nitrate Urine Negative (Negative); Specific Gravity, Urine 1.005 (1.005-1.030)
[2024-12-14 11:39] LABS: PCP Screen Urine Negative (Negative)
[2024-12-14 11:50] LABS: Add Urine Microscopic? YES
[2024-12-14 11:51] VITALS: BP 146/99; PULSE 82; RESP 16; O2SAT 99
== END 2024-12-14 11:58 | disposition home or self-care (01) ==
PROVIDERS: Emergency Provider Family Medicine; PCP Family Medicine
DX: I16.0 Hypertensive urgency (principal)
CPT/HCPCS: 36415; 36416; 70450; 80053; 80306; 81001; 82962; 85025; 85610; 85730; 93005; 96374; 96375; 99285; J0360; J0780; J1885; J3490

== ENCOUNTER 2025-02-01 08:07 | Outpatient (CLI) | payer SELFPAY ==
--- NOTE | 2025-02-01 08:30 | MM_ITS ---
WS: [id number] BILATERAL SCREENING DIGITAL TOMOSYNTHESIS MAMMOGRAM WITH CAD HISTORY: ANNUAL SCREENING COMPARISON: 11/26/2022, 01/11/2017 and 01/14/2015 Bilateral CC and MLO views with tomosynthesis and synthetic mammography submitted. Computer aided detection analyzed. Breast composition: The breasts are heterogeneously dense, which may obscure small masses. No suspicious masses, microcalcifications or architectural distortion. Densities and calcifications are stable. MM/MM scr tomosynthesis [id number] IMPRESSION: BI-RADS: 2 - Benign FOLLOW UP: 1 Year Follow-up
== END 2025-02-01 08:08 | disposition home or self-care (01) ==
LOC: RAD 08:09
PROVIDERS: PCP Family Medicine; Visit Provider Family Medicine
DX: Z12.31 Encounter for screening mammogram for malignant neoplasm of breast (principal); R92.333 Mammographic heterogeneous density, bilateral breasts; R92.1 Mammographic calcification found on diagnostic imaging of breast
CPT/HCPCS: 77063; 77067